=== PATIENT | male | born 1935 | race Caucasian/White ===

== ENCOUNTER → 2020-06-15 | Outpatient (CLI) | payer MEDICARE ==
[~2020-06-15] MED LIST: FINA5TAB4 PO; IBUP1TAB11 PO; LEVO88TA2 PO; LOSA100T14 PO
[2020-06-15 11:53] LABS: MICROSCOPIC NOT IND
[2020-06-15 11:56] LABS: INTERNATIONAL NORMALIZED RATIO 1.04 (0.93-1.1)
[2020-06-15 12:00] LABS: ALBUMIN 3.7 g/dL (3.4-5.0); ANION GAP 4 mmol/L (5-15); CALCIUM 9.1 mg/dL (8.5-10.1); CHLORIDE 109 mmol/L (98-107)
[2020-06-15 12:02] LABS: BASOPHILS % (AUTO) 1 % (0-1); EOSINOPHILS % (AUTO) 7 % (1-7); LYMPHOCYTES % (AUTO) 16 % (22-44); MEAN CORPUSCULAR HEMOGLOBIN 32.4 pg (27.5-34.5); MEAN CORPUSCULAR HGB CONC 33.4 g/dL (33.2-36.2); MEAN PLATELET VOLUME 7.7 fL (7.4-10.4); MONOCYTES % (AUTO) 10 % (2-9); NEUTROPHILS % (AUTO) 66 % (42-75); PLATELET COUNT 237 x10^3/uL (130-400); RED BLOOD COUNT 4.42 x10^6/uL (4.38-5.82); RED CELL DISTRIBUTION WIDTH 14.1 % (9.4-14.8)
[2020-06-15 12:07] LABS: ALANINE AMINOTRANSFERASE 17 U/L (12-78); ALKALINE PHOSPHATASE 123 U/L (45-117); BILIRUBIN,TOTAL 0.5 mg/dL (0.2-1.0); CREATININE 1.32 mg/dL (0.7-1.3); MD NO
== END | disposition home or self-care (01) ==
LOC: STAR 10:44
PROVIDERS: ATTEND Student in an Organized Health Care Education/Training Program
DX: Z01.818 Encounter for other preprocedural examination (principal); N32.0 Bladder-neck obstruction; I45.10 Unspecified right bundle-branch block
CPT/HCPCS: 36415; 80053; 81003; 85025; 85610; 87077; 87086; 93005

== ENCOUNTER 2020-06-24 11:39 | Day surgery (SDC) | payer MEDICARE ==
[~2020-06-24] VITALS: Ht 175.3 cm; Wt 85.5 kg
[2020-06-24] MEDS ORDERED: CHLORHEXIDINE 15 ML UDC MM ONE (12:30)
[2020-06-24] MEDS ORDERED: CHLORHEXIDINE 15 ML UDC ONE (12:31)
[2020-06-24 12:33] VITALS: BP 159/85
[2020-06-24] MEDS ORDERED: LACTATED RINGERS 1,000 ML IV SCH (13:00)
[2020-06-24] MEDS ORDERED: FENTANYL PF 100 MCG/2ML ONE (16:03)
[2020-06-24] MEDS ORDERED: ONDANSETRON 2MG/ML, 2ML ONE (16:09)
[2020-06-24] MEDS ORDERED: DEXAMETHASONE 4 MG/ML, 1ML ONE ×2 (16:09→16:11)
[2020-06-24] MEDS ORDERED: ROCURONIUM 10MG/ML,5ML ONE (16:11)
[2020-06-24] MEDS ORDERED: PROPOFOL 10 MG/ML, 20ML ONE (16:11)
[2020-06-24] MEDS ORDERED: SUCCINYLCHOLINE 20 MG/ML, 10ML ONE (16:11)
[2020-06-24] MEDS ORDERED: MIDAZOLAM 1 MG/ML, 2ML IV PRN (16:30)
[2020-06-24] MEDS ORDERED: EPHEDRINE 50 MG/ML, 1ML IVPush PRN (16:30)
[2020-06-24] MEDS ORDERED: HYDROmorphone 1 MG/ML, 1ML INJ IVPush PRN (16:30)
[2020-06-24] MEDS ORDERED: MEPERIDINE/PF 25MG/0.5ML IVPush PRN (16:30)
[2020-06-24] MEDS ORDERED: OXYcodone 5 MG/5 ML ORAL.SOL UDC PO PRN (16:30)
[2020-06-24] MEDS ORDERED: ONDANSETRON 2MG/ML, 2ML IVPush PRN (16:30)
[2020-06-24] MEDS ORDERED: DIAZEPAM 5 MG/ML, 2ML IVPush PRN (16:30)
[2020-06-24] MEDS ORDERED: DIPHENHYDRAMINE 50 MG/ML, 1ML IVPush PRN (16:30)
[2020-06-24] MEDS ORDERED: LABETALOL 5MG/ML, 20ML IV PRN (16:30)
[2020-06-24] MEDS ORDERED: ALBUTEROL SULFATE 2.5 MG/3 ML NPPB PRN (16:30)
[2020-06-24] MEDS ORDERED: FENTANYL PF 100 MCG/2ML IV PRN (16:30)
[2020-06-24] MEDS ORDERED: PROMETHAZINE 25 MG/ML, 1ML IVPush PRN (16:30)
[2020-06-24] MEDS ORDERED: PROMETHAZINE 12.5 MG SUPP PR PRN (16:30)
[2020-06-24] MEDS ORDERED: FUROSEMIDE 20 MG/2 ML ONE (16:40)
[2020-06-24] MEDS ORDERED: hydrALAzine 20 MG/ML, 1ML ONE (16:57)
[2020-06-24] MEDS: hydrALAzine 20 MG/ML, 1ML IV PRN ×2 (16:58→17:22)
== END 2020-06-24 19:10 | disposition home or self-care (01) ==
LOC: OUT 11:39
PROVIDERS: ATTEND Student in an Organized Health Care Education/Training Program
DX: N32.0 Bladder-neck obstruction (principal); R35.0 Frequency of micturition; I10 Essential (primary) hypertension; E03.9 Hypothyroidism, unspecified; Z88.8 Allergy status to other drugs, medicaments and biological substances; Z72.89 Other problems related to lifestyle; Z79.899 Other long term (current) drug therapy; Z98.890 Other specified postprocedural states; Z20.828 Contact with and (suspected) exposure to other viral communicable diseases; Z87.891 Personal history of nicotine dependence; Z86.73 Personal history of transient ischemic attack (TIA), and cerebral infarction without residual deficits
CPT/HCPCS: 52450; 87635; J0330; J0360; J1100; J1940; J2405; J2704; J3010; J7120